=== PATIENT | female | born 1960 | race Caucasian/White ===

== ENCOUNTER 2023-01-03 18:49 | Emergency (ER) | payer BC ==
[2023-01-03 18:58] VITALS: BP 175/100; PULSE 65; RESP 16; TEMP 97.6
[2023-01-03] MEDS ORDERED: MECLIZINE 12.5 MG TAB PO STA (19:31)
--- NOTE | 2023-01-03 20:37 | CT ---
EXAMINATION TYPE: CT brain wo con CT DLP: 1247.4 mGycm, Automated exposure control for dose reduction was used. DATE OF EXAM: 01/03/2023 8:26 PM COMPARISON: None. CLINICAL INDICATION:Female, 62 years old with history of dizziness, Dizziness TECHNIQUE: Brain: Axial CT images of the brain were obtained with coronal and sagittal reformats created and rev iewed. Contrast used: None. Oral contrast used: None. FINDINGS: Brain: Extra-axial spaces: No abnormal extra-axial fluid collections. Ventricular system: Within normal limits Cerebral parenchyma: No acute intraparenchymal hemorrhage or mass effect. The gifford-white junction is well differentiated. Cerebellum: Unremarkable. Mass effect: No evidence of midline shift. Intracranial vasculature: unremarkable Soft tissues: Normal. Calvarium/osseous structures: No depressed skull fracture. Paranasal sinuses and mastoid air cells: Mild scattered paranasal sinus disease. Visualized orbits: Orbital contents are intact. IMPRESSION: No acute intracranial process.
[2023-01-03 20:39] LABS: ALT 21 U/L (4-34); AST 32 U/L (14-36); African American GFR (CKD) >90 (>60 ml/min/1.73 sqM); Albumin 4.7 g/dL (3.5-5.0); Alkaline Phosphatase 80 U/L (38-126); Anion Gap 9 mmol/L; Blood Urea Nitrogen 21 mg/dL (7-17); Calcium 9.3 mg/dL (8.4-10.2); Carbon Dioxide 25 mmol/L (22-30); Chloride 103 mmol/L (98-107); Glucose 105 mg/dL (74-99); Non-African American GFR(CKD) 84 (>60 ml/min/1.73 sqM); Potassium 4.5 mmol/L (3.5-5.1); Sodium 137 mmol/L (137-145); Total Bilirubin 0.9 mg/dL (0.2-1.3); Total Protein 8.2 g/dL (6.3-8.2)
[2023-01-03 21:22] LABS: Magnesium 2.3 mg/dL (1.6-2.3)
--- NOTE | 2023-01-03 23:21 | ED ---
General Adult HPI - General Chief complaint: Neuro Symptoms/Deficit Stated complaint: DIZZY/CHILLS/NAUSEA Time Seen by Provider: 01/03/23 19:09 Source: patient Mode of arrival: wheelchair - History of Present Illness Initial comments: This patient is 62-year-old woman presenting with feeling of vertigo. She notes that it had come on in the morning and would get worse every time she would attempt to get up and walk or with moving her head. Symptoms were relieved with lying still. She also was having some frontal headache, which was initially severe however now moderate. She has not had neurologic symptoms, no change in vision, speech or swallowing. No weakness or numbness of the extremities. -: hour(s) Location: head Consistency: constant Improves with: none Worsens with: none Associated Symptoms: other Treatments Prior to Arrival: none - Related Data Home Medications Medication Instructions Recorded Confirmed Venlafaxine HCl ER [Effexor Xr] 150 mg PO DAILY 01/03/23 01/03/23 Previous Rx's Medication Instructions Recorded Meclizine [Antivert] 25 mg PO TID PRN #15 tab 01/03/23 Allergies Allergy/AdvReac Type Severity Reaction Status Date / Time fluoxetine [From Prozac] AdvReac Nausea & Verified 01/03/23 22:25 Vomiting sertraline [From Zoloft] AdvReac Nausea & Verified 01/03/23 22:25 Vomiting Review of Systems ROS Statement: Those systems with pertinent positive or pertinent negative responses have been documented in the HPI. ROS Other: All systems not noted in ROS Statement are negative. Constitutional: Denies: fever, chills, weakness Eyes: Denies: eye pain, vision change Respiratory: Denies: cough, dyspnea Cardiovascular: Denies: chest pain, palpitations, edema Gastrointestinal: Denies: abdominal pain, vomiting, diarrhea Genitourinary: Denies: dysuria, hematuria Musculoskeletal: Denies: back pain Skin: Denies: rash Neurological: Reports: headache, vertigo. Denies: weakness, numbness, paresthesias, confusion Psychiatric: Denies: depression Past Medical History Past Medical History: No Reported History History of Any Multi-Drug Resistant Organisms: None Reported Past Surgical History: Appendectomy Past Psychological History: Anxiety Smoking Status: Never smoker Past Alcohol Use History: None Reported Past Drug Use History: None Reported General Exam General appearance: alert, in no apparent distress Head exam: Present: atraumatic, normocephalic Eye exam: Present: normal appearance, PERRL, EOMI, nystagmus. Absent: scleral icterus, conjunctival injection Neck exam: Present: normal inspection, full ROM Respiratory exam: Present: normal lung sounds bilaterally. Absent: respiratory distress, wheezes, rales, rhonchi, stridor Cardiovascular Exam: Present: regular rate, normal rhythm, normal heart sounds. Absent: systolic murmur, diastolic murmur, rubs, gallop GI/Abdominal exam: Present: soft. Absent: distended, tenderness, guarding, rebound, rigid, mass Neurological exam: Present: alert, oriented X3, CN II-XII intact. Absent: motor sensory deficit Skin exam: Present: warm, dry, intact, normal color. Absent: rash Course Vital Signs 01/03/23 18:53 Temperature 97.6 F Pulse Rate 65 Respiratory 16 Rate Blood Pressure 175/100 O2 Sat by Pulse 99 Oximetry Medical Decision Making - Medical Decision Making Patient is 62-year-old woman presenting with vertigo as well as headache. Given the headache, computed tomography scan is obtained which I interpreted as not showing acute intracranial hemorrhage or any bony trauma. Patient is feeling better following medications here. At this point she would like to go home, I discussed follow-up with neurology to have further evaluation including MRI. The patient will return if the symptoms again worsen or any new symptoms develop. We otherwise discussed appropriate further care and follow-up as well as return parameters. Was pt. sent in by a medical professional or institution (, PA, DUMPSTER DRIVER, urgent care, hospital, or shelter...) When possible be specific @ -[No] Did you speak to anyone other than the patient for history (EMS, parent, family, police, friend...)? What history was obtained from this source @ -[No] Did you review nursing and triage notes (agree or disagree)? Why? @ -[I reviewed and agree with nursing and triage notes] Were old charts reviewed (outside hosp., previous admission, EMS record, old EKG, old radiological studies, urgent care reports/EKG's, shelter records)? Report findings @ -[No old charts were reviewed] Differential Diagnosis (chest pain, altered mental status, abdominal pain women, abdominal pain men, vaginal bleeding, weakness, fever, dyspnea, syncope, headache, dizziness, GI bleed, back pain, seizure, CVA, palpatations, mental health, musculoskeletal)? @ -[Differential Headache: Migraine, tension, cluster, carbon monoxide, central venous thrombosis, pension karma temporal arteritis, acute closure glaucoma, intercranial hemorrhage, mastoiditis, sinusitis, head injury, this is not meant to be an all-inclusive list. EKG interpreted by me (3pts min.). @ -[ X-rays interpreted by me (1pt min.). @ -[None done] CT interpreted by me (1pt min.). @ -[As above U/S interpreted by me (1pt. min.). @ -[None done] What testing was considered but not performed or refused? (CT, X-rays, U/S, labs )? Why? @ -[None] What meds were considered but not given or refused? Why? @ -[None] Did you discuss the management of the patient with other professionals (professionals i.e. , PA, DUMPSTER DRIVER, lab, RT, psych nurse, social science teacher, supplier specialist, teacher, correctional security officer, case managers)? Give summary @ -[No] Was smoking cessation discussed for >3mins.? @ -[No] Was critical care preformed (if so, how long)? @ -[No] Were there social determinants of health that impacted care today? How? (Homelessness, low income, unemployed, alcoholism, drug addiction, transportation, low edu. Level, literacy, decrease access to med. care, alf, rehab)? @ -[No] Was there de-escalation of care discussed even if they declined (Discuss DNR or withdrawal of care, Hospice)? DNR status @ -[No] What co-morbidities impacted this encounter? (DM, HTN, Smoking, COPD, CAD, Cancer, CVA, ARF, Chemo, Hep., AIDS, mental health diagnosis, sleep apnea, morbid obesity)? @ -[None] Was patient admitted / discharged? Hospital course, mention meds given and route, prescriptions, significant lab abnormalities, going to OR and other pert inent info. @ -[Discharged Undiagnosed new problem with uncertain prognosis? @ -[No] Drug Therapy requiring intensive monitoring for toxicity (Heparin, Nitro, Insulin, Cardizem)? @ -[No] Were any procedures done? @ -[No] Diagnosis/symptom? @ -[Acute vertigo Acute headache Acute, or Chronic, or Acute on Chronic? @ -[default] Uncomplicated (without systemic symptoms) or Complicated (systemic symptoms)? @ -[Uncomplicated Side effects of treatment? @ -[No] Exacerbation, Progression, or Severe Exacerbation? @ -[No] Poses a threat to life or bodily function? How? (Chest pain, [place], [place], pneumonia, PE, COPD, DKA, ARF, appy, cholecystitis, CVA, Diverticulitis, Homicidal, Suicidal, threat to staff... and all critical care pts) @ -[No] - Lab Data Result diagrams: 01/03/23 22:34 01/03/23 20:00 Lab Results 01/03/23 01/03/23 01/03/23 Range/Units 20:00 20:00 22:34 WBC 6.2 (3.8-10.6) k/uL RBC 5.34 (3.80-5.40) m/uL Hgb 16.5 H (11.4-16.0) gm/dL Hct 47.7 H (34.0-46.0) % MCV 89.3 D (80.0-100.0) fL MCH 30.8 (25.0-35.0) pg MCHC 34.5 (31.0-37.0) g/dL RDW 12.9 (11.5-15.5) % Plt Count 180 (150-450) k/uL MPV 7.1 Neutrophils % 69 % Lymphocytes % 23 % Monocytes % 4 % Eosinophils % 1 % Basophils % 0 % Neutrophils # 4.3 (1.3-7.7) k/uL Lymphocytes # 1.4 (1.0-4.8) k/uL Monocytes # 0.3 (0-1.0) k/uL Eosinophils # 0.1 (0-0.7) k/uL Basophils # 0.0 (0-0.2) k/uL Sodium 137 (137-145) mmol/L Potassium 4.5 (3.5-5.1) mmol/L Chloride 103 (98-107) mmol/L Carbon Dioxide 25 (22-30) mmol/L Anion Gap 9 mmol/L BUN 21 H (7-17) mg/dL Creatinine 0.76 (0.52-1.04) mg/dL Est GFR (CKD-EPI)AfAm >90 (>60 ml/min/1.73 sqM) Est GFR (CKD-EPI)NonAf 84 (>60 ml/min/1.73 sqM) Glucose 105 H (74-99) mg/dL Calcium 9.3 (8.4-10.2) mg/dL Magnesium 2.3 (1.6-2.3) mg/dL Total Bilirubin 0.9 (0.2-1.3) mg/dL AST 32 (14-36) U/L ALT 21 (4-34) U/L Alkaline Phosphatase 80 (38-126) U/L Troponin I <0.012 (0.000-0.034) ng/mL Total Protein 8.2 (6.3-8.2) g/dL Albumin 4.7 (3.5-5.0) g/dL Disposition Clinical Impression: Vertigo Disposition: HOME SELF-CARE Condition: Good Instructions (If sedation given, give patient instructions): Vertigo (ED) Prescriptions: Meclizine [Antivert] 25 mg PO TID PRN #15 tab PRN Reason: Vertigo Is patient prescribed a controlled substance at d/c from ED?: No Referrals: Kade Nicolas MD [Primary Care Provider] - 1-2 days Felicitas Swanson MD [STAFF PHYSICIAN] - 1-2 days
[2023-01-04 00:12] LABS: Basophils % (A) 0 %; Eosinophils # (A) 0.1 k/uL (0-0.7); Eosinophils % (A) 1 %; HCT 47.7 % (34.0-46.0); HGB 16.5 gm/dL (11.4-16.0); Lymphocytes # (A) 1.4 k/uL (1.0-4.8); Lymphocytes % (A) 23 %; MCH 30.8 pg (25.0-35.0); MCHC 34.5 g/dL (31.0-37.0); Mean Platelet Volume 7.1; Monocytes # (A) 0.3 k/uL (0-1.0); Monocytes % (A) 4 %; Neutrophils # (A) 4.3 k/uL (1.3-7.7); Neutrophils % (A) 69 %; Platelet Count 180 k/uL (150-450); RBC 5.34 m/uL (3.80-5.40); RDW 12.9 % (11.5-15.5); WBC 6.2 k/uL (3.8-10.6)
[2023-01-04 00:14] LABS: MCV 89.3 fL (80.0-100.0)
== END 2023-01-04 02:17 | disposition home or self-care (01) ==
LOC: EC 18:49
DX: R42 Dizziness and giddiness (principal); F41.9 Anxiety disorder, unspecified; Z88.8 Allergy status to other drugs, medicaments and biological substances
CPT/HCPCS: 36415; 70450; 80053; 83735; 84484; 85025; 99284

== ENCOUNTER → 2024-04-01 | Outpatient (CLI) | payer BC ==
[2024-04-01 15:37] LABS: ALT 16 U/L (8-44); AST 28 U/L (13-35); Albumin 4.8 g/dL (3.8-4.9); Albumin/Globulin Ratio 1.71 Ratio (1.60-3.17); Alkaline Phosphatase 84 U/L (41-126); Blood Urea Nitrogen 21.5 mg/dL (9.0-27.0); Calcium 9.7 mg/dL (8.7-10.3); Carbon Dioxide 24.1 mmol/L (21.6-31.8); Chloride 102 mmol/L (96-109); Chol/HDL Ratio 3.61 Ratio; Globulin 2.8 g/dL (1.6-3.3); Glucose 95 mg/dL (70-110); LDL Cholesterol,Calculated 154.6 mg/dL (0.0-131.0); Potassium 4.3 mmol/L (3.5-5.5); Sodium 140 mmol/L (135-145); T4, Free (Free Thyroxine) 1.17 ng/dL (0.80-1.80); Total Bilirubin 0.7 mg/dL (0.3-1.2); Total Protein 7.6 g/dL (6.2-8.2)
[2024-04-01 15:42] LABS: Basophils # (A) 0.03 X 10*3/uL (0.00-0.10); Basophils % (A) 0.5 %; Eosinophils # (A) 0.12 X 10*3/uL (0.04-0.35); HCT 44.1 % (37.2-46.3); HGB 14.6 g/dL (12.0-15.0); Lymphocytes % (A) 23.3 %; MCH 30.5 pg (27.0-32.0); MCHC 33.1 g/dL (32.0-37.0); MCV 92.3 FL (80.0-97.0); Mean Platelet Volume 9.8 FL (9.5-12.2); Monocytes # (A) 0.46 X 10*3/uL (0.20-1.00); Monocytes % (A) 7.7 %; NRBC Per 100 WBC 0 X 10*3/uL (0.00-0.01); Neutrophils # (A) 3.98 X 10*3/uL (1.80-7.70); Neutrophils % (A) 66.3 %; Platelet Count 230 X 10*3/uL (140-440); RBC 4.78 X 10*6/uL (4.10-5.20); RDW 12.5 % (11.5-14.5)
== END | disposition home or self-care (01) ==
LOC: LABWHC1 07:12
PROVIDERS: ATTEND Family Medicine
DX: Z00.00 Encounter for general adult medical examination without abnormal findings (principal); Z13.1 Encounter for screening for diabetes mellitus; E04.1 Nontoxic single thyroid nodule
CPT/HCPCS: 36415; 80053; 80061; 83036; 84439; 84443; 85025